=== PATIENT | female | born 1955 | race Hispanic/Latino ===

== ENCOUNTER 2017-12-16 13:46 | Outpatient (CLI) | payer OTHER ==
--- NOTE | 2017-12-16 15:18 | MMO ---
BILATERAL SCREENING MAMMOGRAM: DATE: 12/16/17 HISTORY: 62-year-old female for screening mammography. COMPARISON: 03/11/12. FINDINGS: Bilateral MLO and CC views of the breasts show scattered fibroglandular breast tissue. There is no ev idence of suspicious mass, suspicious cluster of microcalcifications, or area of architectural distor tion. Interpretation of this mammogram was performed with the assistance of computer-aided detection. IMPRESSION: BIRADS 1: Negative Annual screening mammography is recommended. POS: SHABBIR
== END 2017-12-16 13:47 | disposition home or self-care (01) ==
LOC: SCSMAMMO 13:46
PROVIDERS: ATTEND Nurse Practitioner Family
DX: Z12.31 Encounter for screening mammogram for malignant neoplasm of breast (principal)
CPT/HCPCS: 77067

== ENCOUNTER 2018-07-23 14:39 | Outpatient (CLI) | payer OTHER ==
--- NOTE | 2018-07-23 15:54 | CT ---
EXAM: NONCONTRAST CT OF THE ORBITS: 07/23/18 HISTORY: Blurred vision of the right eye since March. COMPARISON: None. FINDINGS: The visualized brain parenchyma is unremarkable. There is adequate aeration of the mastoid air cells and paranasal sinuses. The visualized osseous margins of the orbits and facial bones as well as chau rium are unremarkable. Bilateral ocular lenses are appropriately located. Both globes are intact. Retrobulbar fat is preserv ed. Symmetric attenuation of the optic nerves. There is asymmetric fullness involving the inferior as pect of the right orbit, along the inferior ocular rectus muscle. The thickening appears to involve t he belly of the muscle. In addition, there is mild fullness along the medial ocular rectus muscle pre dominantly at the belly of the muscle. The visualized aerodigestive tract is unremarkable. Based on the coronal images, osteomeatal complexes appear to be patent. Leftward deviation of the sep carmita. No destructive changes of the margins of the orbits. IMPRESSION: Asymmetric prominence of the inferior and to a lesser extent medial ocular rectus muscles of the righ t orbit. Correlate for thyroid associated orbitopathy. Code T POS: OFF
== END 2018-07-23 14:40 | disposition home or self-care (01) ==
LOC: BICCT 14:39
PROVIDERS: ATTEND Nurse Practitioner Family
DX: H53.8 Other visual disturbances (principal)
CPT/HCPCS: 70480

== ENCOUNTER 2018-08-11 14:18 | Outpatient (CLI) | payer OTHER ==
--- NOTE | 2018-08-11 14:45 | ULT ---
ULTRASOUND THYROID: DATE: 08/11/2018 HISTORY: 63-year-old female with thyrotoxicosis. FINDINGS: Isthmus: 0.4 cm AP Right lobe: 1.4 x 1.6 x 4.6 cm. Left lobe: 1.5 x 1.3 x 4.3 cm. Thyroid parenchymal echogenicity and echotexture are diffusely heterogeneous. Although this could be due to multiple thyroid nodules, there are poorly defined discrete borders of the regions of heterogeneous echotexture, and therefore it is difficult to measure any discrete nodule. No cystic le mikhail is identified. IMPRESSION: Diffusely heterogeneous thyroid parenchyma. Differential diagnosis includes Marisol's thyroiditis v ersus Graves' disease versus multinodular goiter.
== END 2018-08-11 14:19 | disposition home or self-care (01) ==
LOC: SCSULT 14:18
PROVIDERS: ATTEND Nurse Practitioner Family
DX: E05.90 Thyrotoxicosis, unspecified without thyrotoxic crisis or storm (principal)
CPT/HCPCS: 76536